=== PATIENT | male | born 2000 | race Caucasian/White ===

== ENCOUNTER 2023-04-25 10:18 | Outpatient (CLI) | payer BC, SELFPAY ==
--- NOTE | ~2023-04-25 | US_ITS ---
EXAMINATION: US carotid duplex BI DATE: 04/25/2023 10:39 INDICATION: Right carotid artery bruit TECHNIQUE: Grayscale, color Doppler, and pulsed Doppler images of the cervical carotid arteries were obtained. The degree of vessel stenosis is placed in one of the following categories: normal, <50%, 5 0-69%, >=70% but less than near-occlusion, near-occlusion, or total occlusion. Note that percent sten osis relative to normal distal artery lumen diameter is indirectly measured from velocity measurement s as described by Niels, et al. Radiology 2003; 229:340-346. COMPARISON: None. FINDINGS: No plaque formation, stenosis, dissection or occlusion of either cervical carotid artery ci rculation is detected. RIGHT: The right common carotid artery (CCA) peak systolic velocity (PSV) is 201.8 cm/s. The right internal carotid artery (ICA) PSV is 157.7 cm/s. The right ICA end-diastolic velocity (EDV) is 26.1 cm/s. The right ICA/CCA PSV ratio is 0.8. Grayscale and color Doppler images yield an estimate of 0% diameter r eduction from plaque in the ICA. The external carotid artery (ECA) PSV is 102.1 cm/s. There is antegr michele flow in the right vertebral artery. LEFT: The left CCA PSV is 187.1 cm/s. The left ICA PSV is 106.3 cm/s. The left ICA EDV is 19.1 cm/s. The le ft ICA/CCA PSV ratio is 0.6. Grayscale and color Doppler images yield an estimate of 0% diameter redu ction from plaque in the ICA. The ECA PSV is 171.0 cm/s. There is antegrade flow in the left vertebra l artery. IMPRESSION: 1. No stenosis in the right internal carotid artery. 2. No stenosis in the left internal carotid artery. Reviewed, dictated and finalized at [facility]. Reviewed, dictated and finalized at [facility]. [facility]
== END 2023-04-25 10:19 ==
LOC: GOSHIMG 10:20
PROVIDERS: PCP Nurse Practitioner Family; Visit Provider Nurse Practitioner Family
DX: R09.89 Other specified symptoms and signs involving the circulatory and respiratory systems (principal)
CPT/HCPCS: 93880